=== PATIENT | male | born 1980 | race American Indian/Alaskan Native ===

== ENCOUNTER 2018-07-02 14:51 | Emergency (ER) | payer BC, OTHER ==
[2018-07-02 15:24] VITALS: BP 126/72
[2018-07-02] MEDS ORDERED: FUL-GLO OP ONE (15:31)
[2018-07-02] MEDS ORDERED: TETRACAINE 0.5% OU ONE (15:31)
[2018-07-02] MEDS ORDERED: NORCO 5/325 PO ONE (15:32)
--- NOTE | 2018-07-02 15:34 | Emergency Department Report ---
Eye Injury/Foreign Body - HPI Duration: 1 Day Eye Location: Right Severity: Severe Tetanus Status: Up to Date Eye Symptoms: Eye Pain: Yes, Blurred Vision: No, Eye Redness: Yes, Grinding/Hammering Metal: No, Contact Lens Use: No, Recalls Injury: No, Photophobia: No Other History: pt is a 38 yo male who woke up today w severe r eye pain. ear is tearing and he feels like something is in. no cats. no dogs. no trauma. no welding. ED Review of Systems ROS: Stated complaint: RT EYE PAIN/EXTREME Other details as noted in HPI Comment: All other systems reviewed and negative Constitutional: denies: chills, fever Eyes: as per HPI ENT: denies: ear pain ED Past Medical Hx - Past Medical History Previous Medical History?: Yes Hx Psychiatric Treatment: Yes (depression) Additional medical history: chronic back pain. anxiety - Surgical History Past Surgical History?: Yes Additional Surgical History: left leg surgery after fracture - Family History Family history: no significant - Social History Smoking Status: Never Smoker Substance Use Type: None - Medications Home Medications: Home Medications Medication Instructions Recorded Confirmed Last Taken Type traMADol [Ultram 50 MG tab] 50 mg PO Q4HR PRN #12 tablet 07/02/18 Unknown Rx Eye Injury Exam - Exam General: Vital signs noted. No distress. Alert and acting appropriately. - Visual Acuity Right Eye Exam: Right EOMI, Right Fluorescein Uptake, Neither Eye Foreign Body, Neither Lid Foreign Body, Neither Mucous Discharge, Neither Purulent Discharge Exam: inc rubi. update over cornea at 7 oclock. tetracaine relieved the pain. no fb seen. globe intact. IOP 8. eoms intact. perrl. 3 brisk. tobradex 2 gtt applied ED Course Vital Signs 07/02/18 15:20 Temperature 98 F Pulse Rate 120 H Respiratory 16 Rate Blood Pressure 126/72 O2 Sat by Pulse 98 Oximetry ED Medical Decision Making - Medical Decision Making POS ABRASION CORNEA PAIN DEC WITH TETRACAINE TOBRADEX APPLIED DC HOME WITH OPTHA FOLLOW UP - Differential Diagnosis RO FB/CORNEAL ABRASION Critical care attestation.: If time is entered above; I have spent that time in minutes in the direct care of this critically ill patient, excluding procedure time. ED Disposition Clinical Impression: Corneal abrasion, right Disposition: DC-01 TO HOME OR SELFCARE Is pt being admited?: No Does the pt Need Aspirin: No Condition: Stable Instructions: Corneal Abrasion (ED) Additional Instructions: do not rub eye place drops in eye every 4 hours motrin or tylenol for mild pain ultram for severe pain eye is patched only for your comfort - you should leave on no more than 24 hours - you can remove it any time you want to follow up with eye MD tomorrow. referral below Prescriptions: traMADol [Ultram 50 MG tab] 50 mg PO Q4HR PRN #12 tablet PRN Reason: Pain Referrals: SETH BLANKENSHIP DO [Primary Care Provider] - 3-5 Days KAYLYNN PADILLA MD [Staff Physician] - 3-5 Days Time of Disposition: 16:23
[2018-07-02] MEDS ORDERED: TOBREX OU ONE (16:32)
== END 2018-07-02 17:20 | disposition home or self-care (01) ==
LOC: ED 14:51
DX: S05.01XA Injury of conjunctiva and corneal abrasion without foreign body, right eye, initial encounter (principal); X58.XXXA Exposure to other specified factors, initial encounter; Y93.9 Activity, unspecified; Y92.89 Other specified places as the place of occurrence of the external cause; Y99.8 Other external cause status; F32.9 Major depressive disorder, single episode, unspecified

== ENCOUNTER 2019-04-12 08:37 | Emergency (ER) | payer OTHER ==
--- NOTE | 2019-04-12 10:31 | Emergency Department Report ---
ED Anxiety HPI - General Chief Complaint: Anxiety Stated Complaint: HEADACHES/PANIC ATTACK/CHEST TIGHT Time Seen by Provider: 04/12/19 10:26 Source: patient Mode of arrival: Ambulatory - History of Present Illness Initial Comments: This is a 39-year-old -Prydeinig male who presents to the emergency room with chest tightness, headache, and lightheadedness for 1 month. He reports the past medical history of anxiety. Patient states he was taken Paxil but ran out of insurance and unable to get refills. He ran out of medication 2 weeks ago. His primary care doctor is a amelia dyer in the family practice in [place]. She reports worsening panic attacks over the past 2 weeks. But prior to arrival he was driving into work and felt everything narrowing in, ches t tightness, lightheadedness, and blurry vision. He reports symptoms have resolved. He denies chest pain, shortness of breath, palpitations, nausea, vomiting, headache, or visual changes. MD Complaint: anxiety Onset/Timin -: week(s) Symptoms: other (chest tightness) Place: outdoors Previous History of Same: Yes Severity: moderate Quality: intermittant, similar to prior episodes Provoking factors: none known Improves With: medication, rest Worsens With: thinking about event Associated symptoms: chest pain, palpitations. denies: shortness of breath, diaphoresis, cough, fever/chills, nausea/vomiting, syncope - Related Data Home Medications: Previous Rx's Medication Instructions Recorded Last Taken Type traMADol [Ultram 50 MG tab] 50 mg PO Q4HR PRN #12 tablet 07/02/18 Unknown Rx hydrOXYzine HCL [Atarax] 25 mg PO Q6HR PRN #15 tablet 04/12/19 Unknown Rx Allergies/Adverse Reactions: Allergies Allergy/AdvReac Type Severity Reaction Status Date / Time prednisone Allergy Unknown Verified 05/29/18 10:29 ED Review of Systems ROS: Stated complaint: HEADACHES/PANIC ATTACK/CHEST TIGHT Other details as noted in HPI Constitutional: denies: chills, fever Respiratory: denies: cough, shortness of breath, wheezing Cardiovascular: denies: chest pain, palpitations Gastrointestinal: denies: abdominal pain, nausea, diarrhea Skin: denies: rash, lesions Neurological: headache. denies: weakness, paresthesias Psychiatric: anxiety. denies: depression ED Past Medical Hx - Past Medical History Previous Medical History?: Yes Hx Psychiatric Treatment: Yes (depression) Additional medical history: chronic back pain. anxiety - Surgical History Past Surgical History?: Yes Additional Surgical History: left leg surgery after fracture - Social History Smoking Status: Current Every Day Smoker Substance Use Type: Alcohol - Medications Home Medications: Home Medications Medication Instructions Recorded Confirmed Last Taken Type traMADol [Ultram 50 MG tab] 50 mg PO Q4HR PRN #12 tablet 07/02/18 Unknown Rx hydrOXYzine HCL [Atarax] 25 mg PO Q6HR PRN #15 tablet 04/12/19 Unknown Rx ED Physical Exam - General Limitations: No Limitations General appearance: alert, in no apparent distress, obese - Respiratory Respiratory exam: Present: normal lung sounds bilaterally. Absent: respiratory distress - Cardiovascular Cardiovascular Exam: Present: regular rate, normal rhythm. Absent: systolic murmur, diastolic murmur, rubs, gallop - GI/Abdominal GI/Abdominal exam: Present: soft, normal bowel sounds - Neurological Exam Neurological exam: Present: alert, oriented X3 - Psychiatric Psychiatric exam: Present: normal affect, normal mood - Skin Skin exam: Present: warm, dry, intact, normal color. Absent: rash ED Course Vital Signs 04/12/19 04/12/19 08:44 10:55 Temperature 98.4 F Pulse Rate 115 H 77 Respiratory 20 20 Rate Blood Pressure 175/97 Blood Pressure 149/96 [Left] O2 Sat by Pulse 99 99 Oximetry ED Medical Decision Making - Medical Decision Making Patient was examined by me. Patient is nontoxic appearing and stable. Past medical history of anxiety. Patient off Paxil for 2 weeks. Chest pain, headache, and light headedness have resolved. At this time I don't think this is an acute NM and labs are not indicated. Given Atarax 25 mg by mouth once while in the ER. Patient informed of results. Start atarax for anxiety. Instructed to follow up with his PCP at [facility] in [place] or return to the ER with worsening symptoms. Patient discharged home in stable condition. Critical care attestation.: If time is entered above; I have spent that time in minutes in the direct care of this critically ill patient, excluding procedure time. ED Disposition Clinical Impression: Anxiety Disposition: DC-01 TO HOME OR SELFCARE Is pt being admited?: No Condition: Stable Instructions: Anxiety (ED) Additional Instructions: Follow up with your primary care doctor for further evaluation. Return to the ER with you experience chest pain, palpitations, shortness of breath, or visual changes. Prescriptions: hydrOXYzine HCL [Atarax] 25 mg PO Q6HR PRN #15 tablet PRN Reason: Anxiety Forms: Accompanied Note, Work/School Release Form(ED) Time of Disposition: 11:09
[2019-04-12] MEDS ORDERED: hydrOXYzine HCL 25 MG TAB PO ONE (11:00)
[2019-04-12 11:23] VITALS: BP 149/96
== END 2019-04-12 11:21 | disposition home or self-care (01) ==
LOC: ED 08:37
DX: F41.9 Anxiety disorder, unspecified (principal); R07.89 Other chest pain; R51 Headache; F32.9 Major depressive disorder, single episode, unspecified; F17.200 Nicotine dependence, unspecified, uncomplicated; Z98.890 Other specified postprocedural states; Z79.899 Other long term (current) drug therapy; Z88.8 Allergy status to other drugs, medicaments and biological substances